=== PATIENT | male | born 1940 | race Caucasian/White ===

== ENCOUNTER → 2017-08-22 | Outpatient (CLI) | payer MEDICARE ==
[2017-08-22 18:50] LABS: Creatinine, Urine Random 83.7 mg/dL (27.00-270.00); Microalb/Creat Ratio UR, Rand 356.033 mg/g (0.000-30.000)
== END ==
LOC: LAB SHORT 16:42
PROVIDERS: Specialist
DX: C67.9 Malignant neoplasm of bladder, unspecified (principal)
CPT/HCPCS: 82043; 82570

== ENCOUNTER 2018-07-19 20:34 | Inpatient (IN) | payer MEDICARE ==
[~2018-07-19] VITALS: Ht 160 cm; Wt 61.2 kg
[2018-07-19] MEDS ORDERED: SODBIC650 PO ×2 (20:41)
[2018-07-19] MEDS ORDERED: ONDA8 PO ×2 (20:41)
[2018-07-19 22:33] LABS: Hematocrit 22.8 % (37.0-53.0); Hemoglobin 7.4 g/dL (13.5-17.5); Mean Corpuscular HGB 30.6 pg (26.0-34.0); Mean Corpuscular HGB Conc 32.5 g/dL (31.5-36.5); RDW Coefficient Variation 14.3 % (11.7-14.2); RDW Standard Deviation 49.4 fL (35.1-46.3); Red Blood Cell Count 2.42 M/mm3 (4.30-5.90)
[2018-07-19 22:37] LABS: Mean Corpuscular Volume 94 fL (80-100)
[2018-07-19 22:38] LABS: BASOPHILS PERCENT AUTO 0 % (0-2); EOSINOPHILS PERCENT AUTO 0 % (0-6); IMMATURE GRAN PERCENT AUTO 0 % (0-1); LYMPHOCYTES ABSOLUTE AUTO 0.21 K/mm3 (0.84-5.20); LYMPHOCYTES PERCENT AUTO 75 % (21-46); MONOCYTES ABSOLUTE AUTO 0.04 K/mm3 (0.16-1.47); MONOCYTES PERCENT AUTO 14 % (4-13); NEUTROPHILS ABSOLUTE AUTO 0.03 K/mm3 (1.96-9.15); NEUTROPHILS PERCENT AUTO 11 % (41-73); Platelet Count 1 K/mm3 (150-400)
[2018-07-19 22:39] LABS: White Blood Cell Count 0.28 K/mm3 (4.00-11.30)
[2018-07-19 22:50] LABS: Troponin I 0.016 ng/mL (0.000-0.040)
[2018-07-19 22:51] LABS: Albumin, Blood 1.8 g/dL (3.4-5.0); Albumin/Globulin Ratio 0.3 (0.8-1.8); Bilirubin, Total 0.9 mg/dL (0.1-1.0); Bun/Creatinine Ratio 21.5 (12.0-20.0); Creatinine, Blood 5.02 mg/dL (0.60-1.20); Globulin, Blood 5.4 g/dL (2.2-4.0); Potassium, Blood 5.7 mmol/L (3.5-5.5); Total Protein, Blood 7.2 g/dL (6.4-8.2)
[2018-07-19 23:16] LABS: Bilirubin, Urine Neg (Neg); Blood, Urine 5+ (Neg); Glucose Qualitative, Urine Neg (Neg); Ketones, Urine Neg (Neg); Leukocyte Esterase, Urine Neg (Neg); Nitrite, Urine Pos (Neg); Protein, Urine 3+ (Neg); Urobilinogen, Urine NORM (Normal)
[2018-07-19 23:17] LABS: International Normalized Ratio 1.3; Prothrombin Time Results 13.2 Sec (9.7-11.5)
[2018-07-19 23:20] LABS: Appearance, Urine Hazy (Clear); Color, Urine Yellow (P-Yellow)
[2018-07-19 23:30] LABS: Amorphous Light ({null, 0-Heavy}); Bacteria Mod /hpf; Red Blood Cells, Urine TNTC /hpf (0-2); Squamous Epithelial Cells Not Seen /hpf (Few); White Blood Cells, Urine 0-2 /hpf (0-5)
[2018-07-19 23:34] LABS: Phosphorus, Blood 4.4 mg/dL (2.5-4.9); Uric Acid, Blood 8.3 mg/dL (3.5-7.2)
--- NOTE | 2018-07-20 01:11 | NUR ---
ASSUMING CARE OF PT AT THIS TIME. PT REPORT RECEIVED VIA TELEPHONE WITH OFFGOING NURSE, HEATH GALLARDO. WAITING FOR PT TRANSFER FROM ED TO ICU AT THIS TIME.
--- NOTE | 2018-07-20 01:35 | NUR ---
PT TRANSFERRED FROM ED TO ICU AT THIS TIME.
--- NOTE | 2018-07-20 01:40 | NUR ---
ASSESSMENT PT CALM, QUIET, COOPERATIVE, RESPONDS TO VERBAL STIMULI, SPONT OPENS EYES, OCC SLOW TO RESPOND, OTHERWISE TALKS AND ANSWERS QUESTIONS APPOPRIATELY, A&O X4. SENSATION INTACT EXCEPT N/T LEFT 2ND FINDER. PT STATES N/T IS NORMAL. PT SUGGS. WEAKNESS NOTED WITH MOVEMENT. PT ASSISTS WITH TURNS. PER PT AND PT'S SON (ROSE) - PT IS INDEPENDENT AT HOME AND COMPELTES ADL ACTIVITIES WITHOUT ASSISTANCE. PT DENIES PAIN/DISCOMFORT AT THIS TIME. LUNGS COARSE, LOWER LOBES DIMINIHSED. PT ON 2L NC. OXY AT >95%. RR 18. DENIES SOB. OCC NONPRODUCTIVE COUGH. AFEBRILE. NSR TO ST WITH OCC PAC'S. HR 90'S TO 100'S. SBP 80'S. 1L NS BOLUS ADMINSITERED IN ED. PLATELETS INFUSING AT THIS TIME. STRONG RADIAL PULSES. FAINT TIBIAL AND PEDAL PULSES. WARM, PALE SKIN. EDEMA BLE'S AND FT. HYPOACTIVE BT X4 QUADRANTS. ABD SOFT, NONTENEDER. NO N/V. NO BM. WAITING FOR STOOL SAMPLE. PT HAS RECENT HX OF BLADDER / KIDNEY CA. PT HAS UROSTOMY - CLEAR, YELLOW URINE NOTED. LEFT RENAL STENT - DARK, RED SECRETIONS NOTED. PT HAS RECENTLY BEEN RECEIVING CHEMO FOR CA. PIV X1.
--- NOTE | 2018-07-20 02:10 | NUR ---
DR. BRADSHAW SBP 80'S. INFORMED DR. BRADSHAW OF VS (SEE VS FS). DR. BRADSHAW ORDERED 1L NS BOLUS AT THIS TIME. WAITING FOR VERIFICATION OF MEDICATION FROM PHARMACY AT THIS TIME.
[2018-07-20 03:46] LABS: Hematocrit 18.7 % (37.0-53.0); Hemoglobin 6.1 g/dL (13.5-17.5); Mean Corpuscular HGB Conc 32.6 g/dL (31.5-36.5); Mean Corpuscular Volume 95 fL (80-100); RDW Coefficient Variation 14.5 % (11.7-14.2); RDW Standard Deviation 49.8 fL (35.1-46.3); Red Blood Cell Count 1.97 M/mm3 (4.30-5.90)
[2018-07-20 03:51] LABS: Mean Platelet Volume 13.7 fL (9.1-12.4); Platelet Count 22 K/mm3 (150-400); White Blood Cell Count 0.22 K/mm3 (4.00-11.30)
[2018-07-20 04:01] LABS: Calcium, Blood 6.4 mg/dL (8.5-10.1); Creatinine, Blood 4.48 mg/dL (0.60-1.20); Potassium, Blood 4.6 mmol/L (3.5-5.5)
[2018-07-20 04:03] LABS: Albumin, Blood 1.7 g/dL (3.4-5.0); Albumin/Globulin Ratio 0.4 (0.8-1.8); Bilirubin, Total 1.1 mg/dL (0.1-1.0); Bun/Creatinine Ratio 22.5 (12.0-20.0); Calcium, Blood 6.4 mg/dL (8.5-10.1); Creatinine, Blood 4.54 mg/dL (0.60-1.20); Globulin, Blood 4.4 g/dL (2.2-4.0); Potassium, Blood 4.6 mmol/L (3.5-5.5); Total Protein, Blood 6.1 g/dL (6.4-8.2)
--- NOTE | 2018-07-20 04:28 | NUR ---
DR. CABRAL CALLED DR. BRADSHAW AT [address] BRADSHAW CALLED ICU BACK AT 0427. INFORMED DR[address] BRADSHAW OF AM LABS. DR. BRADSHAW ORDERED D50 FOR LOW BG, 1 UNIT PRBC'S (WAITING FOR BLOOD SLIP FROM BLOOD BANK AT THIS TIME), AND REPEAT CBC WITHOUT DIFF AT [address] 07/[address] BRADSHAW DOES NOT WANT ADDITIONAL PLATELETS AT THIS TIME.
--- NOTE | 2018-07-20 05:01 | NUR ---
SHIFT ASSESSMENT PT TRANSFERRED FROM ED TO ICU THIS SHIFT. PT SLEPT T/O SHIFT. PT CALM, QUIET, COOPERATIVE, RESPONDS TO VERBAL STIMULI, SPONT OPENS EYES, OCC SLOW TO RESPOND, OTHERWISE TALKS AND ANSWERS QUESTIONS APPROPRIATELY, A&O X4. SENSATION INTACT EXCEPT N/T LEFT 2ND FINGER. PT STATES N/T IS NORMAL. PT SUGGS. WEAKNESS NOTED WITH MOVEMENT. PT ASSISTS WITH TURNS. PT DENIES PAIN/DISCOMFORT T/O SHIFT. LUNGS COARSE AT BEGINNING OF THE SHIFT, BUT CLEARS WITH COUGHING. CURRENTLY UPPER LOBES CLEAR, LOWER LOBES COARSE AND DIMINISHED. PT ON RA. OXY SAT >90%. RR 16 TO 20'S. DENIES SOB. OCC NONPRODUCTIVE COUGH. TMAX 99.0 AT 0500 - TURNED DOWN TEMP IN ROOM AND REMOVED BLANKETS. NSR TO ST WITH OCC PAC'S. HR 90'S TO 100'S. PT REMAINS HYPOTENSIVE THIS AM - SEE VS FS. 1L NS BOLUS ADMINISTERED IN ED. 1L NS BOLUS ADMINISTERED IN ICU. 1U PLATELETS COMPLETED IN ICU. 1U PRBC'S INFUSING AT THIS TIME. STRONG RADIAL PULSES. FAINT TIBIAL AND PEDAL PULSES. WARM, PALE SKIN. EDEMA BLE'S AND FT. HYPOACTIVE BT X4 QUADRANTS. ABD SOFT, NONTENDER. NO N/V. NO BM. WAITING FOR STOOL SAMPLE. PT HAS RECENT HX OF BLADDER / KIDNEY CA. PT HAS UROSTOMY - CLEAR, YELLOW URINE NOTED. LEFT RENAL STENT - DARK, RED SECRETIONS NOTED. PIV X1. NS TKO ON STANDBY. NS AT 125 ML/HR. MAINTAINED NEUTROPENIC PRECAUTIONS. D50 ADMINISTERED PER PHYSICIAN'S ORDER. WILL REPEAT CHEMBG. WILL CONT TO MONITOR PT AND WILL PROVIDE BEDSIDE REPORT TO ONCOMING NURSE THIS AM.
--- NOTE | 2018-07-20 06:15 | NUR ---
DR. AUGUSTINE BRADSHAW IN TO SEE PT AT THIS TIME. DR. BRADSHAW TRANSFERRED PT TO ICU STATUS. VERIFIED SODIUM BICARBONATE ORDER WITH DR. BRADSHAW AT THIS TIME. DR. BRADSHAW INSTRUCTED TO ADMINSITER SODIUM BICARBONATE. DR. BRADSHAW ALSO ORDERED NPO STATUS WITH THE EXCEPTION OF ICE AND MEDICATIONS.
--- NOTE | 2018-07-20 07:45 | NUR ---
START OF SHIFT NOTE: PATIENT IS LYING IN BED RESTING, PRBCS INFUSING AT THIS TIME, TEMP 99.0, VSS, CONSULT PLACED FOR ONCOLOGY PER DR. ALCARAZ, SON AT BEDSIDE, CALL LIGHT IN REACH, WILL CONTINUE TO MONITOR.
--- NOTE | 2018-07-20 10:24 | NUR ---
CALLED ONCOLOGY OFFICE, NO ADVANCE DIRECTIVE ON FILE WITH ONCOLOGY.
--- NOTE | 2018-07-20 11:10 | NUR ---
PATIENT'S DAUGHTER AT BEDSIDE, WAS UPDATED ON PLAN OF CARE, AND LATEST VSS AND LAB RESULTS, PATIENT RESTING COMFORTABLY, MORE INTERACTIVE, EATING FRESH FRUIT, NO PROBLEM SWALLOWING, SWISH AND SWALLOW GIVEN FOR 2 OPEN SORES IN BACK OF ORAL CAVITY, PATIENT IS WEARING DENTURES BUT REFUSES TO TAKE THEM OUT, REPOSITIONED FOR COMFORT, CALL LIGHT IN REACH, WILL CONTINUE TO MONITOR.
--- NOTE | 2018-07-20 11:42 | NUR ---
DR. OLEA IN TO SEE PATIENT, UPDATE PROVIDED.
[2018-07-20 12:30] LABS: Hematocrit 20.4 % (37.0-53.0); Hemoglobin 6.8 g/dL (13.5-17.5); Mean Corpuscular HGB 30.8 pg (26.0-34.0); Mean Corpuscular HGB Conc 33.3 g/dL (31.5-36.5); RDW Standard Deviation 47.6 fL (35.1-46.3); Red Blood Cell Count 2.21 M/mm3 (4.30-5.90)
[2018-07-20 12:36] LABS: Mean Corpuscular Volume 92 fL (80-100); Mean Platelet Volume 13.5 fL (9.1-12.4); Platelet Count 16 K/mm3 (150-400)
[2018-07-20 12:37] LABS: White Blood Cell Count 0.35 K/mm3 (4.00-11.30)
--- NOTE | 2018-07-20 14:06 | NUR ---
FIRST UNIT OF PRBCs STARTED AT 1404 AFTER VITAL SIGNS WERE TAKEN, VERIFIED WITH VALENTINO GOLD RN, PATIENT IN SIGHT, CALL LIGHT IN REACH, WILL CONTINUE TO MONITOR.
--- NOTE | 2018-07-20 14:53 | NUR ---
PATIENT'S POLST FROM 2016 READ FULL CODE, BUT PATIENT WAS WEARING DNR/DNI BAND AND CODE STATUS WAS DNR/DNI, DR. OLEA NOTIFIED, CAME TO ROOM AND SPOKE WITH PATIENT, PATIENT STATED "NOW THAT I AM FEELING BETTER I WANT TO BE A FULL CODE AGAIN", DNR/DNI BAND REMOVED FROM PATIENT'S WRIST AND ORDER FOR CODE STATUS CHANGED TO FULL CODE.
--- NOTE | 2018-07-20 18:21 | NUR ---
SHIFT SUMMARY NOTE: PATIENT IS RESTING COMFORTABLY AT THIS TIME, 3RD UNIT OF PRBCs INFUSING, FIRST UNIT WAS GIVEN IN ED, PATIENT ALSO RECEIVES METRONIDAZOLE, VANCOMYCIN, AND CEFEPIME, PATIENT HAS UROSTOMY AND LEFT NEPHROSTOMY D/T BLADDER AND RENAL CANCER, PATIENT IS GENERALLY WEAK AT THIS TIME, MINIMAL APPETITE, EATS MOSTLY FRUIT, LIKES TO DRINK COLD MILK AND ICEWATER, IS ON ADULT REGULAR DIET SCDs IN PLACE, PATIENT IS UNDER CARE OF HOSPITALIST AND ONCOLOGY, WBC CT WAS 0.35, AND PLT 16 AT REDRAW AROUND NOON, NEXT CBC WITH AUTODIFFERENTIAL TO BE DRAWN 2 HOURS AFTER SECOND UNIT OF BLOOD IS INFUSED, VSS, ON 2L NC AT THIS TIME, CALL LIGHT IN REACH, SEE SHIFT ASSESSMENT DOCUMENTATION AND PROCESS INTERVENTION CHARTING FOR DETAILS, WILL GIVE REPORT TO ONCOMING TOP LIFT NAILER.
--- NOTE | 2018-07-20 19:45 | NUR ---
PT RESTING IN BED. DENIES PAIN, SOB, N/V AND DIZZINESS. STATES HE HAS N/T TO L HAND FROM OLD SKILL SAW INJURY. PRBC'S TRANSFUSING NOW. NO SIGN OF DISTRESS.
--- NOTE | 2018-07-20 21:37 | NUR ---
CALLED JESUS BARRON PSYCHOLOGIST CHIEF ABOUT PT HAVING BLACK TARRY STOOL. NEW ORDERS FOR GUIAC WITH NEXT BM. PT WILL HAVE CBC IN 2 HRS POST BLOOD TRANSFUSION.
[2018-07-20 23:37] LABS: Hematocrit 27.5 % (37.0-53.0); Hemoglobin 9.5 g/dL (13.5-17.5); Mean Corpuscular HGB 30.8 pg (26.0-34.0); Mean Corpuscular HGB Conc 34.5 g/dL (31.5-36.5); Mean Platelet Volume 12.2 fL (9.1-12.4); RDW Coefficient Variation 15.1 % (11.7-14.2); RDW Standard Deviation 49.1 fL (35.1-46.3); Red Blood Cell Count 3.08 M/mm3 (4.30-5.90)
[2018-07-20 23:38] LABS: BASOPHILS ABSOLUTE AUTO 0.01 K/mm3 (0.00-0.23); BASOPHILS PERCENT AUTO 1 % (0-2); EOSINOPHILS PERCENT AUTO 0 % (0-6); IMMATURE GRAN PERCENT AUTO 14 % (0-1); LYMPHOCYTES ABSOLUTE AUTO 0.23 K/mm3 (0.84-5.20); LYMPHOCYTES PERCENT AUTO 31 % (21-46); MONOCYTES ABSOLUTE AUTO 0.11 K/mm3 (0.16-1.47); MONOCYTES PERCENT AUTO 15 % (4-13); Mean Corpuscular Volume 89 fL (80-100); NEUTROPHILS ABSOLUTE AUTO 0.29 K/mm3 (1.96-9.15); NEUTROPHILS PERCENT AUTO 39 % (41-73)
[2018-07-20 23:39] LABS: Platelet Count 14 K/mm3 (150-400); White Blood Cell Count 0.74 K/mm3 (4.00-11.30)
[2018-07-21 03:35] LABS: Hematocrit 28.8 % (37.0-53.0); Hemoglobin 9.8 g/dL (13.5-17.5); Mean Corpuscular HGB 30.3 pg (26.0-34.0); Mean Corpuscular Volume 89 fL (80-100); RDW Coefficient Variation 15.4 % (11.7-14.2); RDW Standard Deviation 50.6 fL (35.1-46.3); Red Blood Cell Count 3.23 M/mm3 (4.30-5.90); White Blood Cell Count 1.15 K/mm3 (4.00-11.30)
[2018-07-21 03:40] LABS: Platelet Count 13 K/mm3 (150-400)
[2018-07-21 03:52] LABS: Alanine Aminotransfer (ALT/SGP 528 U/L (12-78); Albumin, Blood 1.9 g/dL (3.4-5.0); Albumin/Globulin Ratio 0.4 (0.8-1.8); Alk Phos 175 U/L (50-136); Anion Gap 12 mmol/L (6-16); Aspartate Aminotrans (AST/SGOT 208 U/L (12-37); Bilirubin, Total 1.5 mg/dL (0.1-1.0); Blood Urea Nitrogen 93 mg/dL (8-24); Bun/Creatinine Ratio 23.5 (12.0-20.0); CO2, Blood 17 mmol/L (21-32); Calcium, Blood 6.1 mg/dL (8.5-10.1); Chloride, Blood 115 mmol/L (98-108); Creatinine, Blood 3.95 mg/dL (0.60-1.20); Globulin, Blood 4.3 g/dL (2.2-4.0); Glomerular Filtration Rate 16 (60-); Glucose, Blood 89 mg/dL (70-99); Potassium, Blood 4.3 mmol/L (3.5-5.5); Sodium, Blood 144 mmol/L (136-145); Total Protein, Blood 6.2 g/dL (6.4-8.2); Vancomycin, Random 14.8 ug/mL
[2018-07-21 04:52] LABS: Adenovirus F 40/41 Not Detected (NOT DETECT); Astrovirus Not Detected (NOT DETECT); Campylobacter Sp Not Detected (NOT DETECT); Cryptosporidium Not Detected (NOT DETECT); Cyclospora Cayetanensis Not Detected (NOT DETECT); E. Coli O157 Not Detected (NOT DETECT); Entamoeba Histolytica Not Detected (NOT DETECT); Enteroaggregative E. coli-EAEC Not Detected (NOT DETECT); Enteropathogenic E. coli-EPEC Not Detected (NOT DETECT); Enterotoxigenic E. coli-ETEC Not Detected (NOT DETECT); Giardia Lamblia Not Detected (NOT DETECT); Norovirus GI/GII Not Detected (NOT DETECT); Plesiomonas Shigelloides Not Detected (NOT DETECT); Rotavirus A Not Detected (NOT DETECT); Salmonella Sp Not Detected (NOT DETECT); Sapovirus Not Detected (NOT DETECT); Shiga Toxin-prod E. coli-STEC Not Detected (NOT DETECT); Shigella/Enteroin E. coli-EIEC Not Detected (NOT DETECT); Vibrio Cholerae Not Detected (NOT DETECT); Vibrio Sp Not Detected (NOT DETECT); Yersinia Enterocolitica Not Detected (NOT DETECT)
[2018-07-21 05:02] LABS: BAND PERCENT MAN 2 % (0-8); BASOPHILS PERCENT MAN 0 % (0-2); EOSINOPHILS PERCENT MAN 0 % (0-6); LYMPHOCYTES % ATYPICAL MANUAL 2 % (0-0); LYMPHOCYTES ABSOLUTE MAN 0.52 K/mm3 (0.84-5.20); LYMPHOCYTES PERCENT MAN 44 % (21-46); METAMYELOCYTE ABSOLUTE MAN 0.02 K/mm3 (0.00-0.00); METAMYELOCYTE PERCENT MAN 2 % (0-0); MONOCYTES ABSOLUTE MAN 0.18 K/mm3 (0.16-1.47); MONOCYTES PERCENT MAN 16 % (4-13); NEUTROPHILS ABSOLUTE MAN 0.41 K/mm3 (1.96-9.15); SEG NEUTROPHILS PERCENT MAN 34 % (41-73); TOTAL CELLS COUNTED 50
[2018-07-21 05:04] LABS: Stool Occult Blood Guaiac 1 Pos (Neg)
--- NOTE | 2018-07-21 06:14 | NUR ---
SUMMARY PT RESTING IN BED. A/O X4. DENIES PAIN, SOB, N/V AND DIZZINESS. PT IS ON 2L NC FOR DESATING TO HIGH 80'S WHILE SLEEPING. PT GOT ONE UNIT OF PLATELETS FOR PLATELETS OF 13. DR. ANTON WAS CONSULTED AND NEW ORDERS RECEIVED THIS AM. PT HAS HAD 2 BLACK STOOLS. H AND H IS STABLE THIS AM. WBC IMPROVING. NO SIGN OF DISTRESS. CALL LIGHT IN REACH AND USES APPROPRIATELY.
--- NOTE | 2018-07-21 07:20 | NUR ---
START OF SHIFT NOTE: RECEIVED REPORT FROM PAULINA SILVA, ASSUMED CARE, PATIENT IS LYING IN BED COMFORTABLY, DR. HENSON IN TO SEE PATIENT, NO NEW ORDERS RECEIVED, PATIENT IS AFEBRILE THIS AM, VSS, C/O LACK OF SLEEP D/T CONTINUOUS NOISE, U/S TECH IN TO PERFORM RENAL ULTRASOUND, CALL LIGHT IN REACH, WILL CONTINUE TO MONITOR.
--- NOTE | 2018-07-21 17:56 | NUR ---
SHIFT SUMMARY NOTE: PATIENT RESTING COMFORTABLY, VSS, H/H STABLE, PATIENT MORE ALERT AND INTERACTIVE, SLEPT MOST OF THE AFTERNOON, CONTINUOUS TO HAVE MINIMAL APPETITE, REPOSITIONED FREQUENTLY, SON AND DAUGHTER AT BEDSIDE, UPDATED ON PATIENT CONDITION, AFEBRILE, REPORTED NO PAIN, UROSTOMY AND NEPHROSTOMY INTACT AND DRAINING ADEQUEATE AMOUNTS OF LIQUID, FOR DETAILED INFORMATION SEE SHIFT ASSESSMENT, WILL GIVE REPORT TO ONCOMING GRADING CLERK.
--- NOTE | 2018-07-21 22:27 | NUR ---
PT RESTING IN BED. A/O X4. DENIES PAIN, SOB, AND N/V. HAS HAD SOME LIQUID BLACK STOOL AGAIN. CALL LIGHT IN REACH. NO SIGN OF DISTRESS.
[2018-07-22 04:15] LABS: Hematocrit 29.7 % (37.0-53.0); Hemoglobin 10.1 g/dL (13.5-17.5)
[2018-07-22 04:40] LABS: Alanine Aminotransfer (ALT/SGP 380 U/L (12-78); Albumin, Blood 1.8 g/dL (3.4-5.0); Albumin/Globulin Ratio 0.4 (0.8-1.8); Alk Phos 190 U/L (50-136); Anion Gap 11 mmol/L (6-16); Aspartate Aminotrans (AST/SGOT 122 U/L (12-37); Bilirubin, Direct 0.7 mg/dL (0.0-0.3); Bilirubin, Indirect 0.4 mg/dL (0.1-0.7); Bilirubin, Total 1.1 mg/dL (0.1-1.0); Blood Urea Nitrogen 83 mg/dL (8-24); Bun/Creatinine Ratio 24.8 (12.0-20.0); CO2, Blood 21 mmol/L (21-32); CPK Creatine Kinase 152 U/L (39-308); Chloride, Blood 113 mmol/L (98-108); Creatinine, Blood 3.35 mg/dL (0.60-1.20); Globulin, Blood 4.4 g/dL (2.2-4.0); Glomerular Filtration Rate 19 (60-); Glucose, Blood 114 mg/dL (70-99); Phosphorus, Blood 2.8 mg/dL (2.5-4.9); Potassium, Blood 3.6 mmol/L (3.5-5.5); Sodium, Blood 145 mmol/L (136-145); Total Protein, Blood 6.2 g/dL (6.4-8.2)
[2018-07-22 04:43] LABS: Uric Acid, Blood 6.9 mg/dL (3.5-7.2); Vancomycin, Random 20.7 ug/mL
[2018-07-22 04:47] LABS: Calcium, Blood 5.9 mg/dL (8.5-10.1)
[2018-07-22 05:18] LABS: Magnesium, Blood 0.9 mg/dL (1.6-2.4)
--- NOTE | 2018-07-22 06:19 | NUR ---
SUMMARY PT RESTING IN BED. DENIES PAIN, SOB, AND N/V. HAD A COUPLE BLACK LIQUID STOOL DURING THE NIGHT BUT H&H REMAINED STABLE AND VSS. CALLED DR. ANTON ABOUT CRITICAL CALCIUM AND MAG LEVELS THIS AM. NEW ORDERS RECEIVED. MAG AND CALCIUM GLUCONATE RIDERS HANGING. NO REQUESTS OR SIGNS OF DISTRESS. DR. ANTON HERE TO SEE PT NOW.
--- NOTE | 2018-07-22 07:15 | NUR ---
START OF SHIFT NOTE: RECEIVED REPORT FROM PAULINA SILVA, ASSUMED CARE, PATIENT IS A+OX4, DENIES PAIN OR SHORTNESS OF BREATH, REPORTS NO CHEST PAIN/DISCOMFORT, AFREBRILE, REPOSITIONED, LAB IN TO DRAW ORDERED BCs, PATIENT IS INCREASINGLY MORE INTERACTIVE AND NOT SLOW TO RESPOND, UROSTOMY AND NEPHROSTOMY BAGS INTACT, PATIENT HAS MAGNESIUM AND CALCIUM GLUCONATE INFUSING TO REPLACE LOW LEVELS, CALL LIGHT IN REACH, WILL CONTINUE TO MONITOR.
--- NOTE | 2018-07-22 09:59 | NUR ---
PATIENT CONTINUES TO REST COMFORTABLY, VSS, AFEBRILE, ON 2L NC SATING AT 93 %, PATIENT STATED "LET'S NOT SHAVE TODAY", PATIENT ALSO REFUSED TO HAVE HIS DENTURES CLEANED, OTHERWISE PLEASANT AND COOPERATIVE, CALL LIGHT IN REACH, WILL CONTINUE TO MONITOR.
--- NOTE | 2018-07-22 10:21 | NUR ---
SON AT BEDSIDE, UPDATE ON PATIENT CONDITION PROVIDED.
--- NOTE | 2018-07-22 11:25 | NUR ---
DR. OLEA IN TO SEE PATIENT, UPDATE PROVIDED, SPOKE WITH PATIENT.
--- NOTE | 2018-07-22 12:50 | NUR ---
DR. ANTON NOTIFIED OF NOON LAB RESULTS, MAG 1.6 AND CALCIUM 0.91, NEW ORDERS RECEIVED.
--- NOTE | 2018-07-22 17:31 | NUR ---
SHIFT SUMMARY NOTE: PATIENT IS INCREASINGLY MORE INTERACTIVE, A+Ox4, DENIES PAIN OR SHORTNESS OF BREATH, REPORTS NO CHEST PAIN/DISCOMFORT, VSS, AFEBRILE, PATIENT CONTINUOUS TO HAVE MINIMAL APPETITE, BUT IS ENCOURAGED TO EAT, SON AT BEDSIDE THROUGHOUT DAY, PATIENT WAS RESTING UNTIL AFTER LUNCH, THEN UP IN CHAIR, 2 ASSIST AND WALKER, PATIENT TOLERATED VERY WELL, EATING SOME DINNER, SHAKES CHANGED FROM ENSURE TO NEPRO, NO BM DURING THIS SHIFT, UROSTOMY AND NEPHROSTOMY WITH GOOD OUTPUT, PATIENT IS NOW ON CLINIMIX AT 50 CC/HR, ALSO RECEIVED CALCIUM GLUCONATE TWICE AND MAGNESIUM ONCE FOR LOW LEVELS, CONTINUES TO BE ON CEFEPIME, AND METRONIDAZOLE, WELL VANCOMYCIN, CALL LIGHT IN REACH, WILL CONTINUE TO MONITOR AND GIVE REPORT TO ONCOMING GLASS MOLD REPAIRER.
--- NOTE | 2018-07-22 19:15 | NUR ---
ASSUMED CARE OF PT, REPORT RECEIVED. PT IS RESTING QUIETLY RECLINING IN CHAIR AND APPEARS TO BE SLEEPING.
--- NOTE | 2018-07-22 20:55 | NUR ---
PT AROUSES EASILY FOR HS ASSESSMENT, DENIES N/V, DENIES CP/PRESSURE, DENIES INCREASING SOB/DYSPNEA, DENIES NUMBNESS/TINGLING OTHER THAN BASELINE . STATES THAT HE HAS 5/10 PAIN TO "TAILBONE" AND THE BACK OF HIS NECK. RATES PAIN IMPROVED IMMEDIATELY UPON TRANSFER BACK TO BED. SATS LOW 90S WITH OXYGEN VIA NC @ 2 L/MIN, LUNGS CLEAR WITH DIM BASES BILAT. HRR, MAINTAINING BP, SKIN PWD. TRANSFERS TO BED WITH FWW AND SBA FOR LINE MANAGEMENT. SOME SHORTNESS OF BREATH IS NOTED WITH SLIGHT INCREASE IN VISIBLE WORK OF BREATHING. PT STATES THAT THIS IS NORMAL FOR HIM.
[2018-07-23 04:14] LABS: Hematocrit 30.4 % (37.0-53.0); Hemoglobin 10.2 g/dL (13.5-17.5)
[2018-07-23 04:40] LABS: Albumin, Blood 1.7 g/dL (3.4-5.0); Anion Gap 10 mmol/L (6-16); Blood Urea Nitrogen 80 mg/dL (8-24); Bun/Creatinine Ratio 27.3 (12.0-20.0); CO2, Blood 21 mmol/L (21-32); Calcium, Blood 7.2 mg/dL (8.5-10.1); Chloride, Blood 114 mmol/L (98-108); Creatinine, Blood 2.93 mg/dL (0.60-1.20); Glomerular Filtration Rate 22 (60-); Glucose, Blood 134 mg/dL (70-99); Magnesium, Blood 1.5 mg/dL (1.6-2.4); Phosphorus, Blood 2.4 mg/dL (2.5-4.9); Potassium, Blood 3.6 mmol/L (3.5-5.5); Sodium, Blood 145 mmol/L (136-145); Vancomycin, Random 15.3 ug/mL
[2018-07-23 04:44] LABS: Thyroid Stimulating Hormone 0.882 uIU/mL (0.360-4.800)
--- NOTE | 2018-07-23 06:27 | NUR ---
PT RESTS QUIETLY THROUGHOUT SHIFT, DID C/O HEADACHE X 1 AND WELL CONTROLLED WITH TYLENOL, PT STATED THAT HE HAS NOT HAD A HEADACHE "IN 10 OR 15 YEARS" DR ANTON IN FOR AM ROUNDS, ORDERS RECEIVED AND ELECTROLYTE REPLACEMENT INFUSING AT THIS TIME PER ORDERS. OCCASIONAL COUGH CONTINUES PT STATES THAT IT IS PRODUCTIVE OF WHITE SPUTUM ON OCCASION, MAINTAINS SATS THROUGHOUT SHIFT ON 2 L/MIN VIA NC, CONTINUES TO HAVE SOB WITH ACTIVITY.
--- NOTE | 2018-07-23 07:45 | NUR ---
CT AT BEDSIDE TO TAKE PT FOR CT SCAN, YUNIOR HERNANDEZ RN, AT BEDSIDE.
--- NOTE | 2018-07-23 08:00 | NUR ---
RECEIVED REPORT FROM PAULINA DING, AND ASSUMED CARE OF PT.
[2018-07-23 08:01] LABS: Hematocrit 30.6 % (37.0-53.0); Hemoglobin 10.4 g/dL (13.5-17.5); Mean Corpuscular HGB 30.6 pg (26.0-34.0); Mean Corpuscular Volume 90 fL (80-100); NRBC Auto 1.3 /100 WBC (0.0-0.2); RDW Coefficient Variation 15.9 % (11.7-14.2); RDW Standard Deviation 52.9 fL (35.1-46.3); White Blood Cell Count 23.02 K/mm3 (4.00-11.30)
[2018-07-23 08:18] LABS: Platelet Count 48 K/mm3 (150-400)
[2018-07-23 08:29] LABS: BAND PERCENT MAN 18 % (0-8); BASOPHILS ABSOLUTE MAN 0.92 K/mm3 (0.00-0.23); BASOPHILS PERCENT MAN 4 % (0-2); EOSINOPHILS ABSOLUTE MAN 1.15 K/mm3 (0.00-0.68); EOSINOPHILS PERCENT MAN 5 % (0-6); LYMPHOCYTES ABSOLUTE MAN 1.84 K/mm3 (0.84-5.20); LYMPHOCYTES PERCENT MAN 8 % (21-46); METAMYELOCYTE ABSOLUTE MAN 0.23 K/mm3 (0.00-0.00); METAMYELOCYTE PERCENT MAN 1 % (0-0); MONOCYTES ABSOLUTE MAN 1.61 K/mm3 (0.16-1.47); MONOCYTES PERCENT MAN 7 % (4-13); MYELOCYTE ABSOLUTE MAN 2.07 K/mm3 (0.00-0.00); MYELOCYTE PERCENT MAN 9 % (0-0); NEUTROPHILS ABSOLUTE MAN 14.96 K/mm3 (1.96-9.15); PROMYELOCYTE ABSOLUTE MAN 0.23 K/mm3 (0.00-0.00); PROMYELOCYTE PERCENT MAN 1 % (0-0); SEG NEUTROPHILS PERCENT MAN 47 % (41-73); TOTAL CELLS COUNTED 100
--- NOTE | 2018-07-23 09:04 | NUR ---
DR. YANEZ, ONCOLOGIST, AT BEDSIDE FOR EVALUATION.
--- NOTE | 2018-07-23 14:46 | NUR ---
NURSING SUMMARY ALERT AND ORIENTED X 4, SLEEPY DURING THE MORNING, UP IN THE BEDSIDE CHAIR FOR LUNCH AND THROUGH THIS AFTERNOON. SR - ST WITH LBBB. LUNGS SOUNDS COARSE THROUGHOUT, 4L O2 NC, SATS MID 90%'S, VSS. RIGHT UROSTOMY, EMPTIED 500 CC YELLOW URINE. USES WALKER WITH SBA. TOLERATING REGULAR DIET, POOR APPETITE. C/O SORES IN MOUTH AND REFUSES TO REMOVE HIS DENTURES TO ALLOW FOR RINSING. STATES THE PRESSURE FROM THE DENTURES REDUCES THE PAIN OF THE SORES. THE PAIN INCREASES WHEN DENTURES REMOVED. BRUISES AND SMALL SCABS THROUGHOUT ARMS, SOME ON LEGS. DENIES PAIN THAT REQUIRES PAIN MEDICATIONS. WENT TO CT TODAY FOR CT SCAN AND KUB, NO BM YET TODAY. BILATER AC IV SITES, RIGHT AC IV INFUSING CLINAMIX AT 50 ML/HR. THIS IV SITE BEEPS ALOT DUE TO ARM BENDING, PT REFUSING NEW IV START TO PREVENT THE BEEPING.
--- NOTE | 2018-07-23 18:37 | NUR ---
NURSING SUMMARY NO CHANGES FROM EARLIER NURSING SUMMARY EXCEPT PATIENT STATES HE DID NOT SLEEP WELL LAST NIGHT AND WAS "REALLY TIRED TODAY." SAT UP IN CHAIR FOR ABOUT 5 HOURS AND HAD MANY VISITORS.
--- NOTE | 2018-07-23 19:30 | NUR ---
ASSUMED CARE OF PT, REPORT RECEIVED. PT IS RESTING QUIETLY RECLINING IN BED C/O FEELING TIRED TODAY. DENIES N/V, DENIES CP/PRESSURE, DENIES INCREASING SOB/DYSPNEA ALTHOUGH DOES FEEL LIKE HIS COUGH SHOULD BE PRODUCTIVE OF SPUTUM BUT HAS NOT BEEN ABLE TO COUGH ANYTHING UP OF THIS TIME. STATES THAT HE DID NOT SLEEP WELL LAST NOC. RESP RATE HIGH TEENS LOW 20S AT THIS TIME, SENTANCES ARE FULL, VOICE QUALITY IS SOFT, LUNGS WITH OCCASIONAL EXP WHEEZE RIGHT UPPER LOBE, DIM BILAT BASES, FINE CRACKLES MID RIGHT, SATS 92% WITH OXYGEN AT 2.5 L/MIN VIA NC. LEFT NEPHROSTOMY SITE CONTINUES WITH REDNESS UNDER DRESSING, UROSTOMY AND NEPHROSTOMY ARE DRAINING CLEAR YELLOW URINE AT THIS TIME. HRR, RATE 80S AT REST, MAINTAINING ADEQUATE PRESSURES.
--- NOTE | 2018-07-23 22:20 | NUR ---
PT'S SON AT BEDSIDE VISITING. PT'S NEPHROSTOMY DRESSING IS NOTED NO LONGER FULLY INTACT SECONDARY TO BEDDING. QUACH PRURULENT DRAINAGE IS NOTED UNDER DRESSING. DRESSING CHANGED USING STERILE TECHNIQUE. PT TOLERATED WELL. NEPHROSTOMY TUBE MEASUREMENT IS NOTED AT 20 CM.
[2018-07-24 04:09] LABS: Hematocrit 31.9 % (37.0-53.0); Hemoglobin 10.4 g/dL (13.5-17.5)
[2018-07-24 04:11] LABS: Hematocrit 31.5 % (37.0-53.0); Hemoglobin 10.6 g/dL (13.5-17.5); Mean Corpuscular HGB 30.6 pg (26.0-34.0); Mean Corpuscular HGB Conc 33.7 g/dL (31.5-36.5); Mean Corpuscular Volume 91 fL (80-100); NRBC Auto 1.2 /100 WBC (0.0-0.2); Platelet Count 63 K/mm3 (150-400); RDW Coefficient Variation 16.3 % (11.7-14.2); RDW Standard Deviation 54.4 fL (35.1-46.3); Red Blood Cell Count 3.46 M/mm3 (4.30-5.90); White Blood Cell Count 40.16 K/mm3 (4.00-11.30)
[2018-07-24 04:17] LABS: BASOPHILS ABSOLUTE AUTO 0.07 K/mm3 (0.00-0.23); BASOPHILS PERCENT AUTO 0 % (0-2); EOSINOPHILS PERCENT AUTO 0 % (0-6); IMMATURE GRAN ABSOLUTE AUTO 11.46 K/mm3 (0.00-0.10); IMMATURE GRAN PERCENT AUTO 29 % (0-1); LYMPHOCYTES PERCENT AUTO 5 % (21-46); MONOCYTES ABSOLUTE AUTO 1.81 K/mm3 (0.16-1.47); MONOCYTES PERCENT AUTO 5 % (4-13); NEUTROPHILS ABSOLUTE AUTO 24.92 K/mm3 (1.96-9.15); NEUTROPHILS PERCENT AUTO 62 % (41-73)
[2018-07-24 04:34] LABS: BAND PERCENT MAN 14 % (0-8); BASOPHILS PERCENT MAN 0 % (0-2); BLASTS PERCENT MAN 1 % (0-0); EOSINOPHILS PERCENT MAN 0 % (0-6); LYMPHOCYTES PERCENT MAN 3 % (21-46); METAMYELOCYTE PERCENT MAN 3 % (0-0); MONOCYTES PERCENT MAN 6 % (4-13); MYELOCYTE PERCENT MAN 2 % (0-0); NEUTROPHILS ABSOLUTE MAN 32.12 K/mm3 (1.96-9.15); PROMYELOCYTE PERCENT MAN 5 % (0-0); SEG NEUTROPHILS PERCENT MAN 66 % (41-73); TOTAL CELLS COUNTED 100
[2018-07-24 04:36] LABS: Albumin, Blood 1.8 g/dL (3.4-5.0); Anion Gap 10 mmol/L (6-16); Blood Urea Nitrogen 79 mg/dL (8-24); CO2, Blood 24 mmol/L (21-32); Calcium, Blood 7.5 mg/dL (8.5-10.1); Chloride, Blood 113 mmol/L (98-108); Creatinine, Blood 2.72 mg/dL (0.60-1.20); Glomerular Filtration Rate 24 (60-); Glucose, Blood 108 mg/dL (70-99); Magnesium, Blood 1.6 mg/dL (1.6-2.4); Phosphorus, Blood 2.9 mg/dL (2.5-4.9); Potassium, Blood 3.9 mmol/L (3.5-5.5); Sodium, Blood 147 mmol/L (136-145)
[2018-07-24 04:41] LABS: Vancomycin, Random 12.1 ug/mL
--- NOTE | 2018-07-24 07:32 | NUR ---
PT RESTS QUIETLY THIS SHIFT, LEFT NEPHROSTOMY DRESSING CHANGED AT 2200 THIS SHIFT SECONDARY TO DRESSING BECOMING LOOSE FROM RUBBING AGAINST BEDDING AND PRURULENT DRAINAGE FROM INSERTION SITE. PT TOLERATED WELL. HE INITIALLY DENIED PAIN HOWEVER WHEN ASKED ABOUT BODY ACHES, HE ADMITS TO HAVING SOME ACHES. TYLENOL WAS ADMINISTERED WITH HS MEDS AND PT REPORTED GOOD CONTROL OF HIS PAIN. LUNGS CONTINUE INTERMITTENTLY COARSE BUT CLEAR WITH COUGH. HE DOES REPORT IMPROVED SLEEP THIS SHIFT.
--- NOTE | 2018-07-24 12:56 | NUR ---
CALLED DR. ANTON WITH SODIUM AND LAB RESULTS, NEW ORDERS PROVIDED TO DC CLINIMIX AND START D5w AT 50 ML/HR.
--- NOTE | 2018-07-24 14:04 | NUR ---
NURSING SUMMARY ALERT AND ORIENTED X 4, SLEEPY IN THE MORNINGS AND A LITTLE GRUMPY, JUST WANTS TO SLEEP AND BE LEFT ALONE, COMPLIANT. USES THE CALL LIGHT APPROPRIATELY FOR ASSISTANCE NEEDED. SR-ST ON MONITOR, HR 90'S - 101. LUNGS COARSE THROUGHOUT, 4L O2 NC, SATS ABOVE 90%. SOB WITH ACTIVITY. NON-PRODUCTIVE COUGH. UROSTOMY TO RIGHT ABDOMEN, CALLS WHEN HE NEEDS IT EMPTIED, GOOD OUTPUT. LEFT NEPHROSTOMY, SENT CULTURE OF DRAINAGE AROUND LEFT NEPROSTOMY SITE, DRESSING CHANGED. TOLERATING A REGULAR DIET, CHANGED TO GROUND MEATS AND VEGGIES TO ASSIST WITH CHEWING, C/O ULCERS/PAIN IN MOUTH, REFUSES TO ALLOW STAFF TO REMOVE HIS DENTURES FOR RINSING, STATES IT HURTS TOO MUCH. PT STATED HE WILL RINSE THEM WHEN NEEDED. NOTED BRUISES AND SCABS THROUGHOUT ARMS. DENIES PAIN. BILATERAL AC IV SITES, LEFT AC IV INFUSED CLINIMIX UNTIL 1340 AND THEN DISCONTINUED AND CHANGED TO D5W AT 50 ML/HR PER NEW ORDERS FROM DR. ANTON. NA 148, ENCOURAGING PT TO INCREASE WATER INTAKE. ANTIBIOTICS SCHEDULED. WBC 40.16, PLT 63, ADHEREING TO NEUTROPENIC PRECAUTIONS.
--- NOTE | 2018-07-24 14:50 | NUR ---
CALLED DR. ASHRAF, NEW ORDER PROVIDED TO TRANSFER PT TO MEDICAL WITHOUT TELE.
--- NOTE | 2018-07-24 20:00 | NUR ---
PATIENT RESTING QUIETLY IN BED, AWAKENS TO SLIGHT STIMULI. PATIENT HAD HIS OXYGEN OFF BIOX DOWN TO 84% OXYGEN REPLACED AT 5L/NC WITH BIOX 90-94% MOIST NONPRODUCTIVE COUGH. HUMIDIFIER PLACED TO OXYGEN TO MAKE IT MORE COMFORTABLE FOR THE PATIENT. PATIENT ENCOURAGED TO LEAVE OXYGEN IN PLACE. RIGHT ARM APPEARS MORE SWOLLEN THEN LEFT. UROSTOMY DRAINING CLEAR YELLOW URINE, LEFT NEPHROSTOMY DRAINING HAZY YELLOW URINE, DRESSING CD&I.
[2018-07-25 03:47] LABS: Hematocrit 30.5 % (37.0-53.0); Hematocrit 30.7 % (37.0-53.0); Hemoglobin 10.1 g/dL (13.5-17.5); Mean Corpuscular HGB 29.3 pg (26.0-34.0); Mean Corpuscular HGB Conc 32.8 g/dL (31.5-36.5); Mean Corpuscular Volume 89 fL (80-100); NRBC ABSOLUTE 0.74 K/mm3 (0.00-0.02); NRBC Auto 1.3 /100 WBC (0.0-0.2); Platelet Count 73 K/mm3 (150-400); RDW Coefficient Variation 16.3 % (11.7-14.2); RDW Standard Deviation 53.8 fL (35.1-46.3); Red Blood Cell Count 3.41 M/mm3 (4.30-5.90)
[2018-07-25 04:03] LABS: Albumin, Blood 1.8 g/dL (3.4-5.0); Anion Gap 7 mmol/L (6-16); Blood Urea Nitrogen 73 mg/dL (8-24); Bun/Creatinine Ratio 29.7 (12.0-20.0); CO2, Blood 26 mmol/L (21-32); Calcium, Blood 7.6 mg/dL (8.5-10.1); Chloride, Blood 112 mmol/L (98-108); Creatinine, Blood 2.46 mg/dL (0.60-1.20); Glomerular Filtration Rate 27 (60-); Glucose, Blood 103 mg/dL (70-99); Magnesium, Blood 1.5 mg/dL (1.6-2.4); Potassium, Blood 3.7 mmol/L (3.5-5.5); Sodium, Blood 145 mmol/L (136-145)
[2018-07-25 04:09] LABS: BAND PERCENT MAN 14 % (0-8); BASOPHILS PERCENT MAN 0 % (0-2); BLASTS PERCENT MAN 2 % (0-0); EOSINOPHILS PERCENT MAN 0 % (0-6); LYMPHOCYTES PERCENT MAN 6 % (21-46); METAMYELOCYTE PERCENT MAN 4 % (0-0); MONOCYTES PERCENT MAN 8 % (4-13); MYELOCYTE PERCENT MAN 1 % (0-0); PROMYELOCYTE PERCENT MAN 2 % (0-0); SEG NEUTROPHILS PERCENT MAN 63 % (41-73); TOTAL CELLS COUNTED 100
[2018-07-25 04:13] LABS: BASOPHILS ABSOLUTE AUTO 0.06 K/mm3 (0.00-0.23); BASOPHILS PERCENT AUTO 0 % (0-2); EOSINOPHILS PERCENT AUTO 0 % (0-6); IMMATURE GRAN ABSOLUTE AUTO 14.88 K/mm3 (0.00-0.10); IMMATURE GRAN PERCENT AUTO 26 % (0-1); LYMPHOCYTES ABSOLUTE AUTO 2.78 K/mm3 (0.84-5.20); LYMPHOCYTES PERCENT AUTO 5 % (21-46); MONOCYTES ABSOLUTE AUTO 3.47 K/mm3 (0.16-1.47); MONOCYTES PERCENT AUTO 6 % (4-13); NEUTROPHILS ABSOLUTE AUTO 35.31 K/mm3 (1.96-9.15); NEUTROPHILS PERCENT AUTO 63 % (41-73)
--- NOTE | 2018-07-25 06:33 | NUR ---
SUMMARY PATIENT RESTING QUIETLY T/O NIGHT, PATIENT VERBALIZED THAT HE SLEPT OFF AND ON. UROSTOMY AND NEPHROSTOMY DRAINING WELL T/O NIGHT. DOCTOR ANTON IN TO SEE PATIENT SEE NEW ORDERS. RIGHT ARM CONTINUES TO APPEAR MORE SWOLLEN THAN LEFT. PATIENT DENIES PAIN AT THIS TIME.
--- NOTE | 2018-07-25 08:06 | NUR ---
NURSING PCU DAYSHIFT: Assumed care of pt at approx 0700. A/O, pleasant, cooperative w/care, answers questions though there is little engagement in conversation. Denies any pain/discomfort at rest. Skin is fragile w/scattered scabs and bruising, no significant breakdown noted. No tele in place, HRR, BP stable, no c/o CP/pressure, trace BLE edema. L/S fairly cta t/o w/dim bases, denies dyspnea, O2 sat 80-81% while on RA during initial assessment, improved to 91-92% when place on 5L NC, no noted cough this a.m. Abd SNT, BT+, denies tenderness, noted urostomy to R abd w/clear/yellow urine, L nephrostomy. PIV x2, D5W infusing at 50cc/hr. No s/s of acute distress at this time. Pt denies any current needs or questions regarding plan of care. Call light in reach and pt is able to use w/o difficulty. Awaiting rounding from PMD, cont to monitor for any changes.
--- NOTE | 2018-07-25 14:00 | NUR ---
ASSUMED CARE OF PATIENT; NO ACUTE C/O.
--- NOTE | 2018-07-25 18:32 | NUR ---
SUMMARY: ALERT AND COOPERATIVE; MEALS HELD D/T PATIENT REFUSING. FAMILY BROUGHT IN SOME SOUP AND BOTTLE OF PEPSI; PATIENT TOOK OF FEW BITES OF SOUP AND SIPS OF PEPSI; NO GI UPSET. RN EMPTIED 180CC FROM UROSTOMY FROM THE PAST FEW HOURS. L NEPHROSTOMY WITH MINIMAL/UNMEASURABLE OUTPUT. OXYGEN REMAINS AT 5L/NC WITH HUMIDIFIER. REMAINS MED. FLOOR WITHOUT TELEMETRY; NO BEDS AVAILABLE AT THIS TIME. FULL CODE STATUS.
--- NOTE | 2018-07-25 19:40 | NUR ---
ASSUMED CARE BEDSIDE REPORT RECIEVED. PT IS RESTING QUIETLY. PT AWAKENS EASILY TO VERBAL STIMULI AND IS ALERT AND ORIENTED WHEN AWAKE. PT DENIES PAIN OR DISCOMFORT. PT ON 5L O2 NC. VITAL SIGNS STABLE. PT WITH UROSTOMY C/D/I DRAINING YELLOW URINE, AND LEFT NEPHROSTOMY/STENT DRAINING PINK/CLOUDY OUTPUT. PT WITH POOR APPETITE, BUT IS TOLERATING PO FLUIDS WELL. D5W INFUSING AT 50 ML/HR. WILL CONTINUE TO MONITOR.
[2018-07-26 04:05] LABS: Hematocrit 31.3 % (37.0-53.0); Hemoglobin 10.2 g/dL (13.5-17.5)
[2018-07-26 04:26] LABS: Albumin, Blood 1.7 g/dL (3.4-5.0); Anion Gap 7 mmol/L (6-16); Blood Urea Nitrogen 65 mg/dL (8-24); Bun/Creatinine Ratio 27.1 (12.0-20.0); CO2, Blood 27 mmol/L (21-32); Calcium, Blood 7.3 mg/dL (8.5-10.1); Chloride, Blood 110 mmol/L (98-108); Glomerular Filtration Rate 28 (60-); Glucose, Blood 123 mg/dL (70-99); Magnesium, Blood 1.5 mg/dL (1.6-2.4); Phosphorus, Blood 2.1 mg/dL (2.5-4.9); Potassium, Blood 3.7 mmol/L (3.5-5.5); Sodium, Blood 144 mmol/L (136-145)
--- NOTE | 2018-07-26 06:15 | NUR ---
SHIFT SUMMARY NO ACUTE CHANGES THIS SHIFT. PT HAS SLEPT WELL THROUGHOUT THE NIGHT. PT ALERT AND ORIENTED WHEN AWAKE. PT HAS DENIED PAIN, NAUSEA, OR SOB. PT ON 5L O2 NC. VITAL SIGNS STABLE. D5 INFUSING AT 50 ML/HR, NS TKO. K PHOS AND MAG REPLACEMENT STARTED THIS AM. UROSTOMY C/D/I WITH GOOD URINE OUTPUT THIS SHIFT. LEFT NEPHROSTOMY C/D/I WITH MINIMAL OUTPUT. PT HAS REPOSITIONED SELF FOR COMFORT. WILL CONTINUE TO MONITOR AND REPORT OFF TO ONCOMING RN.
--- NOTE | 2018-07-26 07:30 | NUR ---
ASSUMED CARE OF PATIENT; SEE ASSESSMENT CHARTING FOR DETAILS. PATIENT SLEEPING BUT ROUSES EASILY TO SOFT, VERBAL STIMULI. CONTINUES TO REFUSE USE OF SCD'S AND REFUSING MEALS. DENIES ACUTE DISCOMFORT. LIKES BLINDS CLOSED AND DOOR CLOSED; APPEARS VERY DEPRESSED BUT OVERALL COOPERATIVE IE WITH TAKING MEDS, ALLOWING OCCASIONAL VS CHECKS. IVF OF D5W AT 50ML/HR INFUSING. MAG AND KPHOS. RIDERS COMPLETED. NEPHROSTOMY TUBE (L SIDE) WITH MINIMAK OUTPUT; UROSTOMY TUBE (R SIDE) WITH MODERATE URINE OUTPUT INTO BAG. PATIENT REMAINS MED. FLOOR STATUS WITHOUT TELEMETRY; AWAITING BED AVAILABILITY.
--- NOTE | 2018-07-26 09:30 | NUR ---
PHYSICAL THERAPY HERE; WORKED WITH PATIENT; AMBULATED SOME IN ROOM AND THEN PLACED IN RECLINER CHAIR; P.T. RECOMMENDS WALKER AND STANDBY ASSIST. FOR TRANSFERS, ETC.
--- NOTE | 2018-07-26 13:35 | NUR ---
REPORT TO LISA HOLGUIN RN; PATIENT TO TRANSFER TO [facility] FLOOR, ROOM 343.
--- NOTE | 2018-07-26 14:02 | NUR ---
TRANSFERRED TO MEDICAL FLOOR, ROOM 343, VIA W/C; OXYGEN AT 4L/MIN VIA TRANSPORT; WILL RETURN TO 5L/MIN AND HUMIDIFIER ON ARRIVAL TO ROOM 343. PATIENTS' CHART, MEDS/IVF'S AND PERSONAL BELONGINGS. PATIENT REFUSING TUMS; 1400 DOSE HELD.
--- NOTE | 2018-07-26 14:51 | NUR ---
PT ARRIVED TO THE MEDICAL FLOOR FROM THE ICU A/OX3, PT WAS ORIENTED TO THE ROOM LAYOUT AND CALL SYSTEM, CALL LIGHT IN REACH, BREATH SOUNDS COURSE ANTERIOR, PT HAS PERSISTANT COUGH ON O2 @ 5L/MIN AT THIS TIME, I AGREE WITH ASSEMNT ZOEY SHINE FROM MICHAEL RN, WILL CONTINUE TO MONITOR AND ASSESS FOR CHANGES
--- NOTE | 2018-07-26 16:52 | NUR ---
PT IS A/OX3, PLEASANT AND COOPERATIVE PT IS UP WITH ASSIST TO THE BATHROOM USEING THE FWW, THE PT IS ON O2 % 5L/MIN, HUMIDIFIED, THE PT APPEARS TO BE BREATHING EASILY AT REST, VISITOR AT THE BEDSIDE, CALL LIGHT IN REACH
[2018-07-27 05:11] LABS: Hematocrit 30.8 % (37.0-53.0); Hemoglobin 10.1 g/dL (13.5-17.5); Mean Corpuscular HGB 30.1 pg (26.0-34.0); Mean Corpuscular HGB Conc 32.8 g/dL (31.5-36.5); NRBC ABSOLUTE 0.49 K/mm3 (0.00-0.02); NRBC Auto 1.3 /100 WBC (0.0-0.2); Platelet Count 76 K/mm3 (150-400); RDW Coefficient Variation 16.2 % (11.7-14.2); RDW Standard Deviation 54.1 fL (35.1-46.3); Red Blood Cell Count 3.36 M/mm3 (4.30-5.90); White Blood Cell Count 37.34 K/mm3 (4.00-11.30)
[2018-07-27 05:12] LABS: Mean Corpuscular Volume 92 fL (80-100)
--- NOTE | 2018-07-27 05:29 | NUR ---
Rn summary: Patient is alert and oriented. Pt has pale skin. Pt breath sounds were clear but he becomes very SOB even with just turning in bed. Pt was able to walk to the BR with 1 assist and FWW. Pt became exptremely SOB whe wiping self. Pt did pass some dk brown stool, unable to see how much. Pt has a urostomy tube that has put out yellow urine, L nephrostomy with pink cloudy yellow urine with mucus. Drsg for nephrostomy was rolled up tubing all exposed. New tegaderm applied over sterile 2x2 at entry site, after area was cleaned with sterile chloro prep. Moderate amount purulent drainage noted at site and on old drsg. Pt has denied any pain this shift. He has rested only fair. Pt IV infiltrated, 22gage was started to R wrist. Swelling noted to right elbow area from previous infiltration. Pt is able to use the call light appropriately and it is in reach. Will report shift events to day shift RN.
[2018-07-27 05:41] LABS: Albumin, Blood 1.8 g/dL (3.4-5.0); Anion Gap 7 mmol/L (6-16); BAND PERCENT MAN 7 % (0-8); BASOPHILS ABSOLUTE MAN 3.73 K/mm3 (0.00-0.23); BASOPHILS PERCENT MAN 10 % (0-2); BLASTS PERCENT MAN 2 % (0-0); Blood Urea Nitrogen 53 mg/dL (8-24); Bun/Creatinine Ratio 24.1 (12.0-20.0); CO2, Blood 26 mmol/L (21-32); Calcium, Blood 7.2 mg/dL (8.5-10.1); Chloride, Blood 108 mmol/L (98-108); EOSINOPHILS ABSOLUTE MAN 0.37 K/mm3 (0.00-0.68); EOSINOPHILS PERCENT MAN 1 % (0-6); Glomerular Filtration Rate 31 (60-); Glucose, Blood 106 mg/dL (70-99); LYMPHOCYTES ABSOLUTE MAN 3.36 K/mm3 (0.84-5.20); LYMPHOCYTES PERCENT MAN 9 % (21-46); METAMYELOCYTE ABSOLUTE MAN 0.74 K/mm3 (0.00-0.00); METAMYELOCYTE PERCENT MAN 2 % (0-0); MONOCYTES PERCENT MAN 11 % (4-13); MYELOCYTE ABSOLUTE MAN 2.24 K/mm3 (0.00-0.00); MYELOCYTE PERCENT MAN 6 % (0-0); Magnesium, Blood 1.5 mg/dL (1.6-2.4); NEUTROPHILS ABSOLUTE MAN 20.91 K/mm3 (1.96-9.15); PLASMA CELL ABSOLUTE MAN 0.74 K/mm3 (0.00-0.00); PLASMA CELLS PERCENT MAN 2 % (0-0); PROMYELOCYTE ABSOLUTE MAN 0.37 K/mm3 (0.00-0.00); PROMYELOCYTE PERCENT MAN 1 % (0-0); Phosphorus, Blood 2.5 mg/dL (2.5-4.9); Potassium, Blood 3.7 mmol/L (3.5-5.5); SEG NEUTROPHILS PERCENT MAN 49 % (41-73); Sodium, Blood 141 mmol/L (136-145); TOTAL CELLS COUNTED 100
--- NOTE | 2018-07-27 18:35 | NUR ---
SHIFT SUMMARY HE IS RESTING COMFORTABLY. HE HAS NOT EATEN TODAY. RIGHT NOW THOUGH HE IS STARTING TO TAKE A LITTLE SOUP BROUGHT IN BY HIS SON ? HIS THRUSH GIVES HIM MOUTH AND THROAT PAIN. HE TOOK 2 DOSES OF MAGIC MOUTH WASH TODAY. PAS ON. L NEPHROSTOMY DRESSING CHANGED TODAY SO COULD SEE IT. SMALL AMT OF GREEN PURULENT DRAINAGE AT SITE. URINE THAT DRAINS IS CLOUDY PINK.
--- NOTE | 2018-07-28 05:30 | NUR ---
SHIFT SUMMARY PT RESTING QUIETLY AT START OF SHIFT, HF, WITH EYES CLOSED. REMAINING SOUP ON BS TABLE. POOR APPETITE AND PO INTAKE. WAKES EASILY FOR CARE. VERY PLEASANT, BUT WEAK AND PALE. DENIED SOB "NOT TOO MUCH", BUT PT NOT MOVING AT ALL AT THAT POINT EITHER. HAS REMAINED WNL ON 3L O2 THIS SHIFT. HAS NOT GOTTEN UP OR MOVED MUCH AT ALL. HX OF RENAL AND BLADDER CA WITH LAST CHEMO 4 WEEKS AGO, PER PT. NEW POWER GLIDE IV PLACED YESTERDAY AFTERNOON. ABLE TO USE TO DRAW AM LABS TODAY. PER SHIFT REPORT, PT TO RECEIVE 4 WKS ABX TX OUTPT AFTER D/C. REQUESTED TYLENOL AT HS FOR C/O H/A; "FIRST H/A I HAVE HAD IN YEARS". REPORTED H/A GONE AFTER TYLENOL EFFECTIVE. C/O BEING COLD THIS AM; WARM BLANKET GIVEN. RESTED QUIETLY THRU OUT THE NIGHT. CALL LT IN REACH.
[2018-07-28 05:41] LABS: Hematocrit 28.5 % (37.0-53.0); Hemoglobin 9.3 g/dL (13.5-17.5); Mean Corpuscular HGB 29.7 pg (26.0-34.0); Mean Corpuscular HGB Conc 32.6 g/dL (31.5-36.5); Mean Corpuscular Volume 91 fL (80-100); NRBC ABSOLUTE 0.26 K/mm3 (0.00-0.02); NRBC Auto 0.9 /100 WBC (0.0-0.2); Platelet Count 90 K/mm3 (150-400); RDW Coefficient Variation 16.1 % (11.7-14.2); RDW Standard Deviation 53.4 fL (35.1-46.3); Red Blood Cell Count 3.13 M/mm3 (4.30-5.90); White Blood Cell Count 28.91 K/mm3 (4.00-11.30)
[2018-07-28 06:00] LABS: Alanine Aminotransfer (ALT/SGP 96 U/L (12-78); Albumin, Blood 1.7 g/dL (3.4-5.0); Albumin/Globulin Ratio 0.4 (0.8-1.8); Alk Phos 203 U/L (50-136); Anion Gap 6 mmol/L (6-16); Aspartate Aminotrans (AST/SGOT 43 U/L (12-37); Bilirubin, Total 0.5 mg/dL (0.1-1.0); Blood Urea Nitrogen 44 mg/dL (8-24); Bun/Creatinine Ratio 20.3 (12.0-20.0); CO2, Blood 28 mmol/L (21-32); Calcium, Blood 7.4 mg/dL (8.5-10.1); Chloride, Blood 107 mmol/L (98-108); Creatinine, Blood 2.17 mg/dL (0.60-1.20); Globulin, Blood 4.8 g/dL (2.2-4.0); Glomerular Filtration Rate 31 (60-); Glucose, Blood 107 mg/dL (70-99); Magnesium, Blood 1.5 mg/dL (1.6-2.4); Phosphorus, Blood 2.7 mg/dL (2.5-4.9); Sodium, Blood 141 mmol/L (136-145); Total Protein, Blood 6.5 g/dL (6.4-8.2)
[2018-07-28 06:09] LABS: BAND PERCENT MAN 8 % (0-8); BASOPHILS PERCENT MAN 0 % (0-2); BLASTS PERCENT MAN 3 % (0-0); EOSINOPHILS PERCENT MAN 0 % (0-6); LYMPHOCYTES ABSOLUTE MAN 1.15 K/mm3 (0.84-5.20); LYMPHOCYTES PERCENT MAN 4 % (21-46); METAMYELOCYTE ABSOLUTE MAN 0.28 K/mm3 (0.00-0.00); METAMYELOCYTE PERCENT MAN 1 % (0-0); MONOCYTES ABSOLUTE MAN 2.31 K/mm3 (0.16-1.47); MONOCYTES PERCENT MAN 8 % (4-13); MYELOCYTE PERCENT MAN 9 % (0-0); NEUTROPHILS ABSOLUTE MAN 21.68 K/mm3 (1.96-9.15); SEG NEUTROPHILS PERCENT MAN 67 % (41-73); TOTAL CELLS COUNTED 100
--- NOTE | 2018-07-28 18:53 | NUR ---
SHIFT SUMMARY PATIENT HAS HAD NO ACUTE CHANGES.
[2018-07-29 05:11] LABS: Hematocrit 29.2 % (37.0-53.0); Hemoglobin 9.4 g/dL (13.5-17.5); Mean Corpuscular HGB 30.1 pg (26.0-34.0); Mean Corpuscular HGB Conc 32.2 g/dL (31.5-36.5); NRBC Auto 0.8 /100 WBC (0.0-0.2); Platelet Count 125 K/mm3 (150-400); RDW Coefficient Variation 16.1 % (11.7-14.2); RDW Standard Deviation 54.4 fL (35.1-46.3); Red Blood Cell Count 3.12 M/mm3 (4.30-5.90); White Blood Cell Count 24.25 K/mm3 (4.00-11.30)
[2018-07-29 05:14] LABS: Mean Corpuscular Volume 94 fL (80-100); Mean Platelet Volume 13.3 fL (9.1-12.4)
--- NOTE | 2018-07-29 05:23 | NUR ---
ASSEMBLER EQUIPMENT SUMMARY NO ACUTE CHANGES THIS SHIFT. PT AAOX4 AND COOPERATIVE WITH CARE. 1 PERSON ASSIST TO BATHROOM WITH FWW AND STANDBY ASSIST. DENIES PAIN. UROSTOMY AND NEPHROSTOMY PATENT AND DRAINING. CONTINUED ON IV AMPICILLIN AND CONTINUOUS D5. PT HAS PENDING CONSULTATION WITH DR SUAREZ, CALLED AND LEFT MESSAGE WITH ANSWERING SERVICE. VSS, WILL CONTINUE TO MONITOR.
[2018-07-29 05:29] LABS: Albumin, Blood 1.6 g/dL (3.4-5.0); Anion Gap 7 mmol/L (6-16); Blood Urea Nitrogen 42 mg/dL (8-24); Bun/Creatinine Ratio 19.3 (12.0-20.0); CO2, Blood 27 mmol/L (21-32); Calcium, Blood 7.5 mg/dL (8.5-10.1); Chloride, Blood 105 mmol/L (98-108); Creatinine, Blood 2.18 mg/dL (0.60-1.20); Glomerular Filtration Rate 31 (60-); Glucose, Blood 115 mg/dL (70-99); Sodium, Blood 139 mmol/L (136-145)
[2018-07-29 05:50] LABS: BASOPHILS PERCENT MAN 0 % (0-2); EOSINOPHILS ABSOLUTE MAN 0.24 K/mm3 (0.00-0.68); EOSINOPHILS PERCENT MAN 1 % (0-6); LYMPHOCYTES ABSOLUTE MAN 2.66 K/mm3 (0.84-5.20); LYMPHOCYTES PERCENT MAN 11 % (21-46); METAMYELOCYTE ABSOLUTE MAN 0.24 K/mm3 (0.00-0.00); METAMYELOCYTE PERCENT MAN 1 % (0-0); MYELOCYTE ABSOLUTE MAN 3.15 K/mm3 (0.00-0.00); MYELOCYTE PERCENT MAN 13 % (0-0); NEUTROPHILS ABSOLUTE MAN 15.03 K/mm3 (1.96-9.15); SEG NEUTROPHILS PERCENT MAN 62 % (41-73); TOTAL CELLS COUNTED 100
[2018-07-29 05:51] LABS: BLASTS PERCENT MAN 2 % (0-0); MONOCYTES ABSOLUTE MAN 2.42 K/mm3 (0.16-1.47); MONOCYTES PERCENT MAN 10 % (4-13)
--- NOTE | 2018-07-30 04:48 | NUR ---
BODY TEAM MEMBER SUMMARY NO ACUTE CHANGES THIS SHIFT. PT AAOX4 AND COOPERATIVE WITH CARE. STANDBY ASSIST WITH FWW TO BATHROOM. CONTINUED ON IV ABX WELL CONTINUOUS D5. NEPHROSTOMY AND UROSTOMY PATENT AND DRAINING. PT'S SON IN [facility] FOR A WEEK ON VACATION, ESPRESSES CONCERN REGARDING PT'S APPOINTMENT AT UROLOGY CLINIC IN [place] ON THE 08/01/18, WOULD LIKE PT TO BE ABLE TO MAKE APPOINTMENT FOR REMOVAL OF NEPHROSTOMY. PT REMAINS ON 3L O2 VIA NC, DESATS QUICKLY WHEN OFF O2. VSS, WILL CONTINUE TO MONITOR.
[2018-07-30 05:51] LABS: BASOPHILS ABSOLUTE AUTO 0.06 K/mm3 (0.00-0.23); BASOPHILS PERCENT AUTO 0 % (0-2); Hematocrit 26.7 % (37.0-53.0); Hemoglobin 8.5 g/dL (13.5-17.5); LYMPHOCYTES ABSOLUTE AUTO 1.16 K/mm3 (0.84-5.20); LYMPHOCYTES PERCENT AUTO 6 % (21-46); MONOCYTES ABSOLUTE AUTO 3.99 K/mm3 (0.16-1.47); MONOCYTES PERCENT AUTO 21 % (4-13); Mean Corpuscular HGB 29.5 pg (26.0-34.0); Mean Corpuscular HGB Conc 31.8 g/dL (31.5-36.5); Mean Corpuscular Volume 93 fL (80-100); Mean Platelet Volume 12.3 fL (9.1-12.4); NRBC ABSOLUTE 0.06 K/mm3 (0.00-0.02); NRBC Auto 0.3 /100 WBC (0.0-0.2); Platelet Count 198 K/mm3 (150-400); RDW Coefficient Variation 16.5 % (11.7-14.2); RDW Standard Deviation 53.1 fL (35.1-46.3); Red Blood Cell Count 2.88 M/mm3 (4.30-5.90); White Blood Cell Count 19.06 K/mm3 (4.00-11.30)
[2018-07-30 05:52] LABS: EOSINOPHILS PERCENT AUTO 0 % (0-6); IMMATURE GRAN ABSOLUTE AUTO 3.29 K/mm3 (0.00-0.10); IMMATURE GRAN PERCENT AUTO 17 % (0-1); NEUTROPHILS ABSOLUTE AUTO 10.56 K/mm3 (1.96-9.15); NEUTROPHILS PERCENT AUTO 55 % (41-73)
[2018-07-30 06:07] LABS: Albumin, Blood 1.5 g/dL (3.4-5.0); Anion Gap 7 mmol/L (6-16); Blood Urea Nitrogen 38 mg/dL (8-24); Bun/Creatinine Ratio 18.2 (12.0-20.0); CO2, Blood 26 mmol/L (21-32); Calcium, Blood 7.4 mg/dL (8.5-10.1); Chloride, Blood 106 mmol/L (98-108); Creatinine, Blood 2.09 mg/dL (0.60-1.20); Glomerular Filtration Rate 33 (60-); Glucose, Blood 116 mg/dL (70-99); Phosphorus, Blood 2.9 mg/dL (2.5-4.9); Potassium, Blood 3.7 mmol/L (3.5-5.5); Sodium, Blood 139 mmol/L (136-145)
[2018-07-30 06:11] LABS: BAND PERCENT MAN 5 % (0-8); BASOPHILS PERCENT MAN 0 % (0-2); EOSINOPHILS PERCENT MAN 0 % (0-6); LYMPHOCYTES ABSOLUTE MAN 1.14 K/mm3 (0.84-5.20); LYMPHOCYTES PERCENT MAN 6 % (21-46); METAMYELOCYTE ABSOLUTE MAN 0.38 K/mm3 (0.00-0.00); METAMYELOCYTE PERCENT MAN 2 % (0-0); MONOCYTES ABSOLUTE MAN 3.24 K/mm3 (0.16-1.47); MONOCYTES PERCENT MAN 17 % (4-13); MYELOCYTE ABSOLUTE MAN 0.76 K/mm3 (0.00-0.00); MYELOCYTE PERCENT MAN 4 % (0-0); NEUTROPHILS ABSOLUTE MAN 13.34 K/mm3 (1.96-9.15); PROMYELOCYTE ABSOLUTE MAN 0.19 K/mm3 (0.00-0.00); PROMYELOCYTE PERCENT MAN 1 % (0-0); SEG NEUTROPHILS PERCENT MAN 65 % (41-73); TOTAL CELLS COUNTED 100
--- NOTE | 2018-07-30 16:38 | NUR ---
SUMMARY PT IS A/O X4, PLEASANT/COOPERATIVE AFFECT. UP TO BR SBA. HE STATE WEAKNESS IMPROVING. HX RENAL & BLADDER CANCER. UROSTOMY R ABD PATENT/DRNG YELLOW URINE. NEPHROSTOMY L FLANK PATENT DRNG YELLOW, CLOUDY FLUID, GUAZE/OPSITE DRSG COVERING INSERT SITE CHANGED TODAY, PURULENT DRAINAGE. PT STATE NO PAIN TODAY, STATE LOOSE STOOL THIS AM, IMODIUM GIVEN FOR RELIEF. DR MOSQUERA IN TO SEE PT & HIS SON THIS AM, ADDRESS QUESTIONS & CONCERNS. DR SUAREZ IN THIS AFTERNOON, CHANGE ANTIBX TO ROCEPHIN. VINOD MARTINEZMANSABRA NOTIFIED PT WILL NEED 4 WKS ANTIBX & HH. WBC 19, H&H 8.5/26.7, VSS WITH BIOX 95% 3L.
[2018-07-31 05:15] LABS: BASOPHILS ABSOLUTE AUTO 0.05 K/mm3 (0.00-0.23); BASOPHILS PERCENT AUTO 0 % (0-2); Hematocrit 27.4 % (37.0-53.0); Hemoglobin 8.8 g/dL (13.5-17.5); LYMPHOCYTES PERCENT AUTO 8 % (21-46); MONOCYTES ABSOLUTE AUTO 3.48 K/mm3 (0.16-1.47); MONOCYTES PERCENT AUTO 21 % (4-13); Mean Corpuscular HGB 29.5 pg (26.0-34.0); Mean Corpuscular HGB Conc 32.1 g/dL (31.5-36.5); Mean Corpuscular Volume 92 fL (80-100); NRBC ABSOLUTE 0.04 K/mm3 (0.00-0.02); NRBC Auto 0.2 /100 WBC (0.0-0.2); Platelet Count 280 K/mm3 (150-400); RDW Coefficient Variation 16.7 % (11.7-14.2); RDW Standard Deviation 51.9 fL (35.1-46.3); Red Blood Cell Count 2.98 M/mm3 (4.30-5.90); White Blood Cell Count 16.77 K/mm3 (4.00-11.30)
[2018-07-31 05:16] LABS: EOSINOPHILS PERCENT AUTO 0 % (0-6); IMMATURE GRAN ABSOLUTE AUTO 2.17 K/mm3 (0.00-0.10); IMMATURE GRAN PERCENT AUTO 13 % (0-1); NEUTROPHILS ABSOLUTE AUTO 9.77 K/mm3 (1.96-9.15); NEUTROPHILS PERCENT AUTO 58 % (41-73)
[2018-07-31 05:31] LABS: BAND PERCENT MAN 5 % (0-8); BASOPHILS PERCENT MAN 0 % (0-2); EOSINOPHILS PERCENT MAN 0 % (0-6); LYMPHOCYTES ABSOLUTE MAN 2.01 K/mm3 (0.84-5.20); LYMPHOCYTES PERCENT MAN 12 % (21-46); METAMYELOCYTE ABSOLUTE MAN 0.16 K/mm3 (0.00-0.00); METAMYELOCYTE PERCENT MAN 1 % (0-0); MONOCYTES ABSOLUTE MAN 3.01 K/mm3 (0.16-1.47); MONOCYTES PERCENT MAN 18 % (4-13); MYELOCYTE PERCENT MAN 3 % (0-0); PROMYELOCYTE ABSOLUTE MAN 0.16 K/mm3 (0.00-0.00); PROMYELOCYTE PERCENT MAN 1 % (0-0); SEG NEUTROPHILS PERCENT MAN 60 % (41-73); TOTAL CELLS COUNTED 100
[2018-07-31 05:38] LABS: Magnesium, Blood 1.3 mg/dL (1.6-2.4)
[2018-07-31 05:53] LABS: Albumin, Blood 1.5 g/dL (3.4-5.0); Anion Gap 8 mmol/L (6-16); Blood Urea Nitrogen 33 mg/dL (8-24); Bun/Creatinine Ratio 16.4 (12.0-20.0); CO2, Blood 25 mmol/L (21-32); Calcium, Blood 7.4 mg/dL (8.5-10.1); Chloride, Blood 106 mmol/L (98-108); Creatinine, Blood 2.01 mg/dL (0.60-1.20); Glomerular Filtration Rate 34 (60-); Glucose, Blood 89 mg/dL (70-99); Phosphorus, Blood 2.9 mg/dL (2.5-4.9); Potassium, Blood 3.6 mmol/L (3.5-5.5); Sodium, Blood 139 mmol/L (136-145)
--- NOTE | 2018-07-31 07:16 | NUR ---
CLOTH CALENDER SUMMARY NO ACUTE CHANGES THIS SHIFT. PT AAOX4 AND 1 PERSON ASSIST TO THE BATHROOM. PT DENIES PAIN. MAG 1.3 THIS AM, RECIEVED ORDER FOR IV MAG SULFATE. CONTINUED ON D5 AT 50 ML/HR. PT EAGER TO GO HOME TODAY, DOESN'T WANT TO MISS APPOINTMENT TOMORROW AT [facility] [place]. VSS, WILL CONTINUE TO MONITOR.
--- NOTE | 2018-07-31 09:57 | NUR ---
PATIENT WAS OFFERED A SHOWER BUT DECLINED HE IS POSSIBLY GOING HOME AND WOULD LIKE TO TAKE ONE AT HOME.
[2018-07-31] MEDS ORDERED: CALC.25 PO ×2 (12:52)
[2018-07-31] MEDS ORDERED: Calcium Carbon650 MG PO ×2 (12:53)
[2018-07-31] MEDS ORDERED: DOCU100 PO ×2 (12:54)
[2018-07-31] MEDS ORDERED: Megestrol400 MG/10 PO ×2 (12:54)
[2018-07-31] MEDS ORDERED: SACC250C PO ×2 (12:55)
[2018-07-31] MEDS ORDERED: CHOL10002 PO ×2 (12:56)
[2018-07-31] MEDS ORDERED: Ceftriaxone2 G1 IV ×2 (12:57)
[2018-07-31] MEDS ORDERED: MAGCHL64ER PO ×2 (13:06)
--- NOTE | 2018-07-31 15:03 | NUR ---
DISCHARGE DR MOSQUERA IN THIS AM, STATE OK FOR PT TO D/C HOME TODAY WITH OUTPT ANTIBX. 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 ANTIBX ARE EXPECTED TO BE DELIVERED TO HOME LATER THIS WEEK. HE WILL HAVE [facility]. POWERGLIDE IN PLACE [facility], VERIFIED WITH OFFICE SERVICES CLERK & DR MOSQUERA THAT IT WILL BE SUFFICIENT FOR NEEDED IV THERAPY. D/C INSTRUCT & F/U APPOINT REVIEWED WITH PT/SON. PT PROVIDED W/C ESCORT FROM HOSP. HE IS PLEASANT/APPRECIATIVE.
== END 2018-07-31 15:27 | disposition home or self-care (01) | DRG 698 ==
LOC: ER 20:34 → MEDS 23:57 → ICUW 23:57 → MEDS 07-26 14:04 → ENPENDDIS 07-31 11:46 → MEDS 07-31 15:27
PROVIDERS: Emergency Medicine; Family Medicine; Internal Medicine Nephrology; Nurse Practitioner Acute Care; Pharmacist; ADMIT Internal Medicine
PROC: 30233N1 Transfusion of Nonautologous Red Blood Cells into Peripheral Vein, Percutaneous Approach (ICD-10-PCS; principal; 2018-07-21)
DX: T83.512A Infection and inflammatory reaction due to nephrostomy catheter, initial encounter (principal); A41.01 Sepsis due to Methicillin susceptible Staphylococcus aureus; D61.810 Antineoplastic chemotherapy induced pancytopenia; D61.1 Drug-induced aplastic anemia; N18.4 Chronic kidney disease, stage 4 (severe); E86.0 Dehydration; R19.7 Diarrhea, unspecified; I12.9 Hypertensive chronic kidney disease with stage 1 through stage 4 chronic kidney disease, or unspecified chronic kidney disease; E88.09 Other disorders of plasma-protein metabolism, not elsewhere classified; E83.51 Hypocalcemia; Z85.59 Personal history of malignant neoplasm of other urinary tract organ
CPT/HCPCS: 36415; 36430; 71046; 74176; 76770; 80048; 80053; 80069; 80202; 81001; 82248; 82270; 82330; 82550; 82652; 82947; 83605; 83735; 83880; 84100; 84295; 84443; 84484; 84550; 85014; 85018; 85025; 85027; 85610; 85651; 85730; 86140; 86850; 86900; 86901; 86920; 86923; 87040; 87070; 87077; 87086; 87147; 87186; 87205; 87507; 93005; 93010; 93306; 94760; 94761; 96361; 96374; 96375; 97110; 97116; 97162; 97530; 99285-25; J0295; J0610; J0692; J0696; J0881; J1447; J1450; J1815; J3370; J3475; J7030; J7042; J7050; J7060; J7070; P9016; P9035; P9046

== ENCOUNTER 2018-08-01 00:04 | Day surgery (SDC) | payer MEDICARE ==
[~2018-08-01 00:04] MED LIST: CALC.25 PO; CHOL10002 PO; Calcium Carbon650 MG PO; Ceftriaxone2 G1 IV; DOCU100 PO; MAGCHL64ER PO; Megestrol400 MG/10 PO; ONDA8 PO; SACC250C PO; SODBIC650 PO
== END 2018-08-01 08:18 | disposition home or self-care (01) ==
LOC: ATC 00:04
DX: A41.9 Sepsis, unspecified organism (principal)
CPT/HCPCS: 96365; J0696

== ENCOUNTER 2018-08-02 00:13 | Day surgery (SDC) | payer MEDICARE | END 2018-08-02 08:10 | disposition home or self-care (01) | LOC: ATC 00:13 | DX: A41.01 Sepsis due to Methicillin susceptible Staphylococcus aureus (principal); T83.512A Infection and inflammatory reaction due to nephrostomy catheter, initial encounter; N17.9 Acute kidney failure, unspecified; N18.9 Chronic kidney disease, unspecified; R65.21 Severe sepsis with septic shock | CPT/HCPCS: 96365; J0696 ==

== ENCOUNTER 2018-08-03 00:58 | Day surgery (SDC) | payer MEDICARE | END 2018-08-03 08:24 | disposition home or self-care (01) | LOC: ATC 00:58 | DX: T83.512A Infection and inflammatory reaction due to nephrostomy catheter, initial encounter (principal); A41.01 Sepsis due to Methicillin susceptible Staphylococcus aureus; R65.20 Severe sepsis without septic shock; N17.9 Acute kidney failure, unspecified; E43 Unspecified severe protein-calorie malnutrition | CPT/HCPCS: 96365; J0696 ==

== ENCOUNTER 2018-08-04 00:58 | Day surgery (SDC) | payer MEDICARE | END 2018-08-04 23:08 | disposition home or self-care (01) | LOC: ATC 00:58 | DX: T83.512A Infection and inflammatory reaction due to nephrostomy catheter, initial encounter (principal); A49.01 Methicillin susceptible Staphylococcus aureus infection, unspecified site; N17.9 Acute kidney failure, unspecified; E43 Unspecified severe protein-calorie malnutrition; R65.21 Severe sepsis with septic shock | CPT/HCPCS: J0696 ==

== ENCOUNTER 2018-08-05 00:13 | Day surgery (SDC) | payer MEDICARE | END 2018-08-05 22:45 | disposition home or self-care (01) | LOC: ATC 00:13 | DX: T83.512A Infection and inflammatory reaction due to nephrostomy catheter, initial encounter (principal); A41.01 Sepsis due to Methicillin susceptible Staphylococcus aureus; R65.21 Severe sepsis with septic shock; N17.9 Acute kidney failure, unspecified; E43 Unspecified severe protein-calorie malnutrition ==